=== PATIENT | male | born 1990 | race Caucasian/White ===

== ENCOUNTER 2016-09-02 17:02 | Inpatient (IN) | payer MEDICARE, OTHER ==
[2016-09-02] MEDS ORDERED: ONDANSETRON 4 MG/2 ML VIAL IVPUSH ONE (17:08)
[2016-09-02] MEDS ORDERED: NALOXONE HCL 0.4 MG/ML VIAL IVPUSH PRN ×2 (17:08)
[2016-09-02] MEDS ORDERED: SODIUM CHLORIDE 1,000 ML IV STA ×2 (17:08→18:02)
[2016-09-02] MEDS ORDERED: ONDANSETRON 4 MG/2 ML VIAL ONE (17:08)
--- NOTE | 2016-09-02 17:14 | PDOC ---
History of Present Illness - General History Source: Family Exam Limitations: Other (obtunded and unable to give hx) <MartaAngie - Last Filed: 09/02/16 18:46> <Rafael Rashid - Last Filed: 09/02/16 22:06> - General Stated Complaint: OVERDOSE Past History - Past Medical History Asthma: Yes ( A CHILD) Suicide Attempt (Hx): No - Immunization History Immunization Up to Date: Yes - Psycho/Social/Smoking Cessation Hx Anxiety: No Suicidal Ideation: No Smoking Status: Yes Smoking History: Current every day smoker Have you smoked in the past 12 months: Yes Number of Cigarettes Smoked Daily: 10 'Breaking Loose' booklet given: 06/27/15 Hx Alcohol Use: No Drug/Substance Use Hx: No Substance Use Type: None <MartaAngie Last Filed: 09/02/16 18:46> <Rafael Rashid - Last Filed: 09/02/16 22:06> - Past Medical History Allergies/Adverse Reactions: Allergies Allergy/AdvReac Type Severity Reaction Status Date / Time venom-honey bee Allergy Verified 09/02/16 17:26 [bee venom (honey bee)] Home Medications: Ambulatory Orders NK [No Known Home Medication] 09/02/16 Review of Systems - Review of Systems Able to Perform ROS?: No (obtunded 2/2 OD) <MartaNellyBowen - Last Filed: 09/02/16 18:46> *Physical Exam - Physical Exam Respiratory/Chest: positive: Lungs Clear Cardiovascular: positive: Regular Rate, S1, S2 Gastrointestinal/Abdominal: positive: Soft. negative: Distended, Guarding Integumentary: positive: Dry, Warm Neurologic: positive: Other (obtunded) <MartaAngie - Last Filed: 09/02/16 18:46> - Vital Signs Last Vital Signs Temp Pulse Resp BP Pulse Ox 2 F L 82 17 102/60 98 09/02/16 20:55 09/02/16 20:55 09/02/16 20:55 09/02/16 20:55 09/02/16 20:55 <Rafael Rashid - Last Filed: 09/02/16 22:06> ED Treatment Course - LABORATORY CBC & Chemistry Diagram: 09/02/16 17:15 09/02/16 17:15 <Angie Lozano - Last Filed: 09/02/16 18:46> - LABORATORY CBC & Chemistry Diagram: 09/02/16 17:15 09/02/16 17:15 - ADDITIONAL ORDERS Additional order review: Laboratory Results 09/02/16 09/02/16 09/02/16 20:02 20:02 17:30 Puncture Site Left radial ABG pH 7.34 L ABG pCO2 at Pt Temp 45.6 H ABG pO2 at Pt Temp 133.0 H ABG HCO3 23.8 ABG O2 Sat (Measured) 99.0 H ABG O2 Content 16.2 ABG Base Excess -1.6 Juan Manuel Test Positive Carboxyhemoglobin 4.5 H Methemoglobin 0.6 O2 Delivery Device Nasal Oxygen Flow Rate 3l PEEP 0.0 Sodium Potassium Chloride Carbon Dioxide Anion Gap BUN Creatinine Creat Clearance w eGFR Random Glucose Calcium Total Bilirubin AST ALT Alkaline Phosphatase Creatine Kinase Creatine Kinase Index CK-MB (CK-2) CK-MB (CK-2) Rel Index Troponin I Total Protein Albumin Urine Color Urine Appearance Urine pH Ur Specific [place] Urine Protein Urine Glucose (UA) Urine Ketones Urine Blood Urine Nitrite Urine Bilirubin Urine Urobilinogen Ur Leukocyte Esterase Salicylates Opiates Screen Methadone Screen Acetaminophen < 2.0 L Barbiturate Screen Phencyclidine Screen Ur Amphetamines Screen MDMA (Ecstasy) Screen Benzodiazepines Screen Cocaine Screen U Marijuana (THC) Screen Alcohol, Quantitative 09/02/16 09/02/16 09/02/16 17:30 17:15 17:15 Puncture Site ABG pH ABG pCO2 at Pt Temp ABG pO2 at Pt Temp ABG HCO3 ABG O2 Sat (Measured) ABG O2 Content ABG Base Excess Juan Manuel Test Carboxyhemoglobin Methemoglobin O2 Delivery Device Oxygen Flow Rate PEEP Sodium Potassium Chloride Carbon Dioxide Anion Gap BUN Creatinine Creat Clearance w eGFR Random Glucose Calcium Total Bilirubin AST ALT Alkaline Phosphatase Creatine Kinase Creatine Kinase Index CK-MB (CK-2) CK-MB (CK-2) Rel Index Cancelled Troponin I Total Protein Albumin Urine Color Urine Appearance Urine pH Ur Specific [place] Urine Protein Urine Glucose (UA) Urine Ketones Urine Blood Urine Nitrite Urine Bilirubin Urine Urobilinogen Ur Leukocyte Esterase Salicylates < 4.0 Opiates Screen Methadone Screen Acetaminophen Barbiturate Screen Phencyclidine Screen Ur Amphetamines Screen MDMA (Ecstasy) Screen Benzodiazepines Screen Cocaine Screen U Marijuana (THC) Screen Alcohol, Quantitative 130.1 H* 09/02/16 09/02/16 09/02/16 17:15 17:15 17:15 Puncture Site ABG pH ABG pCO2 at Pt Temp ABG pO2 at Pt Temp ABG HCO3 ABG O2 Sat (Measured) ABG O2 Content ABG Base Excess Juan Manuel Test Carboxyhemoglobin Methemoglobin O2 Delivery Device Oxygen Flow Rate PEEP Sodium 145 Potassium 4.4 Chloride 107 Carbon Dioxide 31 Anion Gap 7 L BUN 8 Creatinine 1.0 D Creat Clearance w eGFR > 60 Random Glucose 90 Calcium 8.6 Total Bilirubin 0.3 D AST 59 H D ALT 86 H D Alkaline Phosphatase 79 D Creatine Kinase 202 Creatine Kinase Index Y CK-MB (CK-2) < 1.000 CK-MB (CK-2) Rel Index Troponin I < 0.02 Total Protein 7.5 Albumin 4.2 Urine Color Straw Urine Appearance Clear Urine pH 6.0 Ur Specific [place] 1.006 Urine Protein Negative Urine Glucose (UA) Negative Urine Ketones Negative Urine Blood Negative Urine Nitrite Negative Urine Bilirubin Negative Urine Urobilinogen Negative Ur Leukocyte Esterase Negative Salicylates Opiates Screen Positive Methadone Screen Negative Acetaminophen Barbiturate Screen Negative Phencyclidine Screen Negative Ur Amphetamines Screen Negative MDMA (Ecstasy) Screen Negative Benzodiazepines Screen Positive Cocaine Screen Negative U Marijuana (THC) Screen Negative Alcohol, Quantitative 09/02/16 17:15 RBC 4.99 MCV 87.3 MCHC 32.8 RDW 13.0 MPV 8.1 Neutrophils % 52.8 Lymphocytes % 35.1 D Monocytes % 9.6 Eosinophils % 1.8 Basophils % 0.7 - Medications Given in the ED: ED Medications Discontinued Medications Generic Name Dose Route Start Last Admin Trade Name Freq PRN Reason Stop Dose Admin Sodium Chloride 1,000 mls @ 1,000 mls/hr 09/02/16 17:08 09/02/16 17:16 Normal Saline - IV 09/02/16 18:07 1,000 mls/hr ASDIR STA Administration Sodium Chloride 1,000 mls @ 1,000 mls/hr 09/02/16 18:02 09/02/16 18:14 Normal Saline - IV 09/02/16 19:01 1,000 mls/hr ASDIR STA Administration Metoclopramide HCl 10 mg 09/02/16 18:02 09/02/16 18:15 Reglan Injection - IVPB 09/02/16 18:03 10 mg ONCE ONE Administration Ondansetron HCl 4 mg 09/02/16 17:08 09/02/16 17:17 Zofran Injection IVPUSH 09/02/16 17:09 4 mg ONCE ONE Administration <Rafael Rashid - Last Filed: 09/02/16 22:06> Medical Decision Making - Medical Decision Making 09/02/16 17:10 26-year-old male, history of opiate abuse (percocet), status post rehabilitation a year ago and was on suboxone up until a week ago when patient self discontinued as is trying to "quit cold turkey" as per family, BIB EMS after father found pt obtunded and unresponsive with empty bottle of "percocet" on night stand. Family also reports that patient has been drinking beer yesterday and today. No known psych hx otherwise and no h/o suicidal attempts See exam Opiod OD Obtunded w/ mild hypoxia and miotic pupils on exam -supplemental oxygen -narcan -IVF -labs/drug screen -anticipate admission 09/02/16 17:38 Pt now awake and more alert after narcan administration. Able to now give hx and admits that he took 3, 80mg oxycontin tabs and also drank alcohol today. Denies SI. Labs and utox pending. Will continue to reassess 09/02/16 18:09 Utox + for opiate and benzos. Pt admits that his father gave him 1/2 tab of clonazepam "to sleep" earlier today. Pt actively vomiting now. Reglan and IVF in progress. Plan is to admit if pt remains ill, otherwise possibly detox/rehab transfer to [facility] if pt consents 09/02/16 18:10 09/02/16 18:11 09/02/16 18:20 09/02/16 18:46 <Angie Lozano - Last Filed: 09/02/16 18:46> *DC/Admit/Observation/Transfer <Angie Lozano - Last Filed: 09/02/16 18:46> - Discharge Dispostion Admit: Yes <Rafael Rashid - Last Filed: 09/02/16 22:06> Diagnosis at time of Disposition: Opiate overdose Qualifiers: Encounter type: initial encounter Injury intent: accidental or unintentional Qualified Code(s): T40.601A - Poisoning by unspecified narcotics, accidental ( unintentional), initial encounter Opioid dependence Qualifiers: Substance use status: with intoxication Complication of substance-induced condition: with unspecified complication Qualified Code(s): F11.229 - Opioid dependence with intoxication, unspecified - Discharge Dispostion Condition at time of disposition: Unchanged/Unknown Progress Note - Progress Note Progress Note: Spoke with Beatriz at poison control center who recommended patient be admitted for observation due to 80mg Oxycontin ER (4 tabs) overdose, respiratory depression, mental status change, may need Narcan Q6hr prn, avoid Romazicon as this may cause rebound seizures, Q-T EKG prolongation. She also requested patient have ABG, with strict vitals Q4hrs. Patient family made aware. Dr. Jay to admit patient. <Rafael Rashid - Last Filed: 09/02/16 22:06>
[2016-09-02 17:22] VITALS: BMI 19.2
[2016-09-02 17:25] LABS: BASOPHIL 0.7 % (0-2.0); EOSINOPHIL 1.8 % (0-4.5); MCH 28.7 pg (25.7-33.7); MCHC 32.8 g/dl (32.0-35.9); MEAN CELL VOLUME 87.3 fl (80-96); MEAN PLT VOLUME 8.1 fl (7.5-11.1); NEUTROPHILS 52.8 % (42.8-82.8); PLATELET COUNT 327 K/MM3 (134-434); WHITE BLOOD COUNT 8.3 K/mm3 (4.0-10.0)
[2016-09-02 17:29] LABS: URINE APPEARANCE CLEAR; URINE BILIRUBIN NEGATIVE (NEGATIVE); URINE BLOOD NEGATIVE (NEGATIVE); URINE COLOR STRAW; URINE GLUCOSE (UA) NEGATIVE (NEGATIVE); URINE KETONE NEGATIVE (NEGATIVE); URINE LEUK ESTERASE NEGATIVE (NEGATIVE); URINE NITRITE NEGATIVE (NEGATIVE); URINE PROTEIN NEGATIVE (NEGATIVE); URINE UROBILINOGEN NEGATIVE E.U./dl (0.2-1.0)
[2016-09-02 17:35] LABS: URINE MARIJUANA THC NEGATIVE ng/ml (CUTOFF=50)
[2016-09-02 17:46] LABS: ALBUMIN 4.2 g/dl (3.4-5.0); ANION GAP 7 (8-16); BILIRUBIN,TOTAL 0.3 mg/dL (0.2-1.0); CALCIUM 8.6 mg/dL (8.5-10.1); CO2 31 mmol/L (21-32); GLUCOSE,RANDOM 90 mg/dL (74-106); SGOT/AST 59 U/L (15-37); SGPT/ALT 86 U/L (12-78); TOT PROT 7.5 g/dl (6.4-8.2)
[2016-09-02 17:49] LABS: ALK PHOS 79 U/L (45-117); TROPONIN I < 0.02 ng/ml (0.00-0.05)
[2016-09-02] MEDS ORDERED: METOCLOPRAMIDE HCL INJECTION 10 MG/2 ML VIAL IVPB ONE (18:02)
[2016-09-02] MEDS ORDERED: METOCLOPRAMIDE HCL INJECTION 10 MG/2 ML VIAL ONE (18:04)
[2016-09-02 20:06] LABS: ARTERIAL BLOOD GAS BASE EXCESS -1.6 meq/l (-2-2); ARTERIAL BLOOD GAS HCO3 23.8 meq/L (22-26); ARTERIAL BLOOD GAS pH 7.34 (7.35-7.45)
[2016-09-02 20:07] LABS: ALLENS TEST POSITIVE; ART PUNCT SITE LEFT RADIAL; LPM/O2% 3L; PT. ON O2? YES; TYPE OF O2 NASAL
[2016-09-02 20:10] LABS: METHEMOGLOBIN 0.6 % (0.4-1.5)
[2016-09-03 08:16] LABS: BASOPHIL 0.6 % (0-2.0); EOSINOPHIL 2.1 % (0-4.5); MCH 29.3 pg (25.7-33.7); MCHC 33.3 g/dl (32.0-35.9); MEAN PLT VOLUME 7.9 fl (7.5-11.1); NEUTROPHILS 53.5 % (42.8-82.8); PLATELET COUNT 269 K/MM3 (134-434); RDW 13.1 % (11.9-15.9); WHITE BLOOD COUNT 8.9 K/mm3 (4.0-10.0)
--- NOTE | 2016-09-03 08:21 | HP ---
Admitting History and Physical - Admission History of Present Illness: 26-year-old male, history of opiate abuse (percocet), status post rehabilitation a year ago and was on suboxone up until a week ago when patient self discontinued as is trying to "quit cold turkey" as per family, BIB EMS after father found pt obtunded and unresponsive with empty bottle of "percocet" on night stand. Family also reports that patient has been drinking beer yesterday and today. No known psych hx otherwise and no h/o suicidal attempts THIS AM PT AWAKE BUT STILL GROGGY HE CANNOT GIVE MUCH DETAIL - Past Medical History Cardiovascular: No: CAD, CHF, HTN, Hyperlipdemia Pulmonary: Yes: Asthma ( A CHILD) Gastrointestinal: No: Ascites Musculoskeletal: No: Chronic low back pain Dermatology: Yes: Other (shingles left eye age 11) Additional Past Medical History: OXYCODONE AND ALCOHOL - Smoking History Smoking history: Current every day smoker Have you smoked in the past 12 months: Yes Aproximately how many cigarettes per day: 10 - Alcohol/Substance Use Hx Alcohol Use: Yes History of Substance Use: reports: Prescription - Social History ADL: Independent 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 History of Recent Travel: No Home Medications - Allergies Allergies/Adverse Reactions: Allergies Allergy/AdvReac Type Severity Reaction Status Date / Time venom-honey bee Allergy Verified 09/02/16 17:26 [bee venom (honey bee)] - Home Medications Home Medications: Ambulatory Orders NK [No Known Home Medication] 09/02/16 Review of Systems - Review of Systems Constitutional: reports: Lethargy Respiratory: reports: No Symptoms Gastrointestinal: reports: No Symptoms Genitourinary: reports: No Symptoms Neurological: reports: Change in LOC, Weakness Physical Examination Vital Signs: Vital Signs Temperature 97.5 F L 09/02/16 23:30 Pulse Rate 87 09/03/16 05:56 Respiratory Rate 20 09/03/16 05:56 Blood Pressure 109/67 09/03/16 05:56 O2 Sat by Pulse Oximetry (%) 100 09/02/16 23:30 Cardiovascular: Yes: Tachycardia, S1, S2 Respiratory: Yes: Regular, CTA Bilaterally Gastrointestinal: Yes: Normal Bowel Sounds, Soft Edema: No Neurological: Yes: Alert, Oriented, Lethargy, Weakness. No: Facial Droop Labs: CBC, BMP 09/03/16 07:50 Problem List - Problems (1) Opiate overdose Assessment/Plan: MONITOR ON TEL DETOX CONSULT Code(s): T40.601A - POISONING BY UNSP NARCOTICS, ACCIDENTAL, INIT Qualifiers: Encounter type: initial encounter Injury intent: accidental or unintentional Qualified Code(s): T40.601A - Poisoning by unspecified narcotics, accidental (unintentional), initial encounter (2) Change in mental status Assessment/Plan: DUE TO ABOVE OBSERVE NEURO Code(s): R41.82 - ALTERED MENTAL STATUS, UNSPECIFIED
[2016-09-03 08:51] LABS: ALBUMIN 3.8 g/dl (3.4-5.0); ALK PHOS 66 U/L (45-117); ANION GAP 6 (8-16); BILIRUBIN,TOTAL 0.5 mg/dL (0.2-1.0); CALCIUM 8.7 mg/dL (8.5-10.1); CO2 34 mmol/L (21-32); CREATININE 0.9 mg/dL (0.7-1.3); GLUCOSE,RANDOM 85 mg/dL (74-106); SGOT/AST 26 U/L (15-37); SGPT/ALT 61 U/L (12-78); TOT PROT 6.2 g/dl (6.4-8.2); TROPONIN I < 0.02 ng/ml (0.00-0.05)
--- NOTE | 2016-09-03 12:39 | EKG ---
Test Reason : Blood Pressure : / mmHG Vent. Rate : 078 BPM Atrial Rate : 078 BPM P-R Int : 140 ms QRS Dur : 082 ms QT Int : 346 ms P-R-T Axes : 070 083 057 degrees QTc Int : 394 ms SINUS RHYTHM WITH MARKED SINUS ARRHYTHMIA OTHERWISE NORMAL ECG WHEN COMPARED WITH ECG OF 21 JUN 2001 NO SIGNIFICANT CHANGE WAS FOUND Confirmed by KENNY CAMARA MD ([id number]) on 09/03/2016 12:38:38 PM Referred By: Confirmed By:KENNY CAMARA MD
[2016-09-03] MEDS ORDERED: chlordiazePOXIDE HCL 25 MG CAPSULE PO ONE (13:44)
[2016-09-03] MEDS ORDERED: chlordiazePOXIDE HCL 25 MG CAPSULE PO PRN (13:44)
--- NOTE | 2016-09-03 13:49 | CONSULT ---
Consult Detox [facility] Reason for Current Admission/Consult: Alcohol dependence & opioid overdose Referred by:: Fred Jay MD - History History of Present Illness: Pt. had eloped then came back while I was in his room to see him.Nurse told pt. that he had to go back down to ED for evaluation before he could be re- admitted. Pt. says he wants to be discharged.Unable to complete consultation. - History Source History Provided By: Patient - Alcohol/Substance Use Hx Alcohol Use: Yes - Past Medical History Cardio/Vascular: No: CAD, CHF, HTN, Hyperlipdemia Pulmonary: Yes: Asthma ( A CHILD) Gastrointestinal: No: Ascites Musculoskeletal: No: Chronic low back pain Dermatology: Yes: Other (shingles left eye age 11) Additional Medical History: PT. ADMITS TO MARIHUANA USE FROM 14 Y/O TO 16 Y/O. HE ALSO EXPERIMENTED WITH MDMA FROM [age] Y/O TO [age] Y/O. - Significant Medical Findings: Laboratory Tests 09/02/16 09/02/16 09/02/16 17:15 17:15 17:15 WBC 8.3 RBC 4.99 Hgb 14.3 Hct 43.6 MCV 87.3 MCHC 32.8 RDW 13.0 Plt Count 327 MPV 8.1 Neutrophils % 52.8 Lymphocytes % 35.1 D Monocytes % 9.6 Eosinophils % 1.8 Basophils % 0.7 Puncture Site ABG pH ABG pCO2 at Pt Temp ABG pO2 at Pt Temp ABG HCO3 ABG O2 Sat (Measured) ABG O2 Content ABG Base Excess Juan Manuel Test Carboxyhemoglobin Methemoglobin O2 Delivery Device Oxygen Flow Rate PEEP Sodium 145 Potassium 4.4 Chloride 107 Carbon Dioxide 31 Anion Gap 7 L BUN 8 Creatinine 1.0 D Creat Clearance w eGFR > 60 Random Glucose 90 Calcium 8.6 Total Bilirubin 0.3 D AST 59 H D ALT 86 H D Alkaline Phosphatase 79 D Creatine Kinase 202 Creatine Kinase Index Y CK-MB (CK-2) < 1.000 CK-MB (CK-2) Rel Index Troponin I < 0.02 Total Protein 7.5 Albumin 4.2 Urine Color Straw Urine Appearance Clear Urine pH 6.0 Ur Specific [place] 1.006 Urine Protein Negative Urine Glucose (UA) Negative Urine Ketones Negative Urine Blood Negative Urine Nitrite Negative Urine Bilirubin Negative Urine Urobilinogen Negative Ur Leukocyte Esterase Negative Salicylates Opiates Screen Methadone Screen Acetaminophen Barbiturate Screen Phencyclidine Screen Ur Amphetamines Screen MDMA (Ecstasy) Screen Benzodiazepines Screen Cocaine Screen U Marijuana (THC) Screen Alcohol, Quantitative 09/02/16 09/02/16 09/02/16 17:15 17:15 17:15 WBC RBC Hgb Hct MCV MCHC RDW Plt Count MPV Neutrophils % Lymphocytes % Monocytes % Eosinophils % Basophils % Puncture Site ABG pH ABG pCO2 at Pt Temp ABG pO2 at Pt Temp ABG HCO3 ABG O2 Sat (Measured) ABG O2 Content ABG Base Excess Juan Manuel Test Carboxyhemoglobin Methemoglobin O2 Delivery Device Oxygen Flow Rate PEEP Sodium Potassium Chloride Carbon Dioxide Anion Gap BUN Creatinine Creat Clearance w eGFR Random Glucose Calcium Total Bilirubin AST ALT Alkaline Phosphatase Creatine Kinase Creatine Kinase Index CK-MB (CK-2) CK-MB (CK-2) Rel Index Cancelled Troponin I Total Protein Albumin Urine Color Urine Appearance Urine pH Ur Specific [place] Urine Protein Urine Glucose (UA) Urine Ketones Urine Blood Urine Nitrite Urine Bilirubin Urine Urobilinogen Ur Leukocyte Esterase Salicylates Opiates Screen Positive Methadone Screen Negative Acetaminophen Barbiturate Screen Negative Phencyclidine Screen Negative Ur Amphetamines Screen Negative MDMA (Ecstasy) Screen Negative Benzodiazepines Screen Positive Cocaine Screen Negative U Marijuana (THC) Screen Negative Alcohol, Quantitative 130.1 H* 09/02/16 09/02/16 09/02/16 17:30 17:30 20:02 WBC RBC Hgb Hct MCV MCHC RDW Plt Count MPV Neutrophils % Lymphocytes % Monocytes % Eosinophils % Basophils % Puncture Site Left radial ABG pH 7.34 L ABG pCO2 at Pt Temp 45.6 H ABG pO2 at Pt Temp 133.0 H ABG HCO3 23.8 ABG O2 Sat (Measured) 99.0 H ABG O2 Content 16.2 ABG Base Excess -1.6 Juan Manuel Test Positive Carboxyhemoglobin Methemoglobin O2 Delivery Device Nasal Oxygen Flow Rate 3l PEEP 0.0 Sodium Potassium Chloride Carbon Dioxide Anion Gap BUN Creatinine Creat Clearance w eGFR Random Glucose Calcium Total Bilirubin AST ALT Alkaline Phosphatase Creatine Kinase Creatine Kinase Index CK-MB (CK-2) CK-MB (CK-2) Rel Index Troponin I Total Protein Albumin Urine Color Urine Appearance Urine pH Ur Specific [place] Urine Protein Urine Glucose (UA) Urine Ketones Urine Blood Urine Nitrite Urine Bilirubin Urine Urobilinogen Ur Leukocyte Esterase Salicylates < 4.0 Opiates Screen Methadone Screen Acetaminophen < 2.0 L Barbiturate Screen Phencyclidine Screen Ur Amphetamines Screen MDMA (Ecstasy) Screen Benzodiazepines Screen Cocaine Screen U Marijuana (THC) Screen Alcohol, Quantitative 09/02/16 09/03/16 09/03/16 20:02 07:50 07:50 WBC 8.9 RBC 4.31 Hgb 12.6 D Hct 37.9 MCV 88.0 MCHC 33.3 RDW 13.1 Plt Count 269 MPV 7.9 Neutrophils % 53.5 Lymphocytes % 34.5 Monocytes % 9.3 Eosinophils % 2.1 Basophils % 0.6 Puncture Site ABG pH ABG pCO2 at Pt Temp ABG pO2 at Pt Temp ABG HCO3 ABG O2 Sat (Measured) ABG O2 Content ABG Base Excess Juan Manuel Test Carboxyhemoglobin 4.5 H Methemoglobin 0.6 O2 Delivery Device Oxygen Flow Rate PEEP Sodium 142 Potassium 3.9 Chloride 102 Carbon Dioxide 34 H Anion Gap 6 L BUN 9 Creatinine 0.9 Creat Clearance w eGFR > 60 Random Glucose 85 Calcium 8.7 Total Bilirubin 0.5 D AST 26 D ALT 61 D Alkaline Phosphatase 66 Creatine Kinase 145 Creatine Kinase Index CK-MB (CK-2) CK-MB (CK-2) Rel Index Troponin I < 0.02 Total Protein 6.2 L Albumin 3.8 Urine Color Urine Appearance Urine pH Ur Specific [place] Urine Protein Urine Glucose (UA) Urine Ketones Urine Blood Urine Nitrite Urine Bilirubin Urine Urobilinogen Ur Leukocyte Esterase Salicylates Opiates Screen Methadone Screen Acetaminophen Barbiturate Screen Phencyclidine Screen Ur Amphetamines Screen MDMA (Ecstasy) Screen Benzodiazepines Screen Cocaine Screen U Marijuana (THC) Screen Alcohol, Quantitative labs noted Assessment Plan - Diagnosis (1) Opiate overdose Status: Acute Qualifiers: Encounter type: initial encounter Injury intent: accidental or unintentional Qualified Code(s): T40.601A - Poisoning by unspecified narcotics, accidental (unintentional), initial encounter - Plan Plan: To be F/U by primary care
[2016-09-03 14:27] VITALS: BP 112/66; PULSE 86; TEMP 98.8
[2016-09-03] MEDS ORDERED: chlordiazePOXIDE HCL 25 MG CAPSULE PO SCH (17:00)
[2016-09-04] MEDS ORDERED: chlordiazePOXIDE HCL 25 MG CAPSULE PO SCH (17:00)
[2016-09-05] MEDS ORDERED: chlordiazePOXIDE 5 MG CAPSULE PO SCH (17:00)
== END 2016-09-03 16:08 | disposition left against medical advice (07) | DRG 816 ==
LOC: JER 17:02 → JERBED 22:06 → OBSVTOIN 23:31 → J4W 09-03 01:29
PROVIDERS: ADMIT Family Medicine; ATTEND Family Medicine
DX: T40.0X1A Poisoning by opium, accidental (unintentional), initial encounter (principal); T40.601A Poisoning by unspecified narcotics, accidental (unintentional), initial encounter; R41.82 Altered mental status, unspecified; Y92.098 Other place in other non-institutional residence as the place of occurrence of the external cause; F17.210 Nicotine dependence, cigarettes, uncomplicated; J45.909 Unspecified asthma, uncomplicated; F10.20 Alcohol dependence, uncomplicated
CPT/HCPCS: 36415; 36600; 80053; 80307; 81003; 82375; 82550; 82553; 82803; 83050; 84484; 85025; 93005; 93010; 99285-25; G0378

== ENCOUNTER 2022-09-14 09:57 | Emergency (ER) | payer OTHER ==
[2022-09-14 10:03] VITALS: RESP 18; TEMP 99; BMI 19.2
[2022-09-14] MEDS ORDERED: IBUPROFEN 600 MG TABLET (FP) PO ONE ×3 (11:23→12:01)
[2022-09-14] MEDS ORDERED: LIDOCAINE HCL/PF 1% SDV 5ML VIAL ONE (12:19)
[2022-09-14 14:13] VITALS: BP 126/70; PULSE 86
== END 2022-09-14 14:18 | disposition home or self-care (01) ==
LOC: JERFT 09:57
PROC: 0RSUXZZ Reposition Right Metacarpophalangeal Joint, External Approach (ICD-10-PCS; principal; 2022-09-14)
DX: S63.104A Unspecified dislocation of right thumb, initial encounter (principal); W01.0XXA Fall on same level from slipping, tripping and stumbling without subsequent striking against object, initial encounter
CPT/HCPCS: 73130-TC-RT-FY; 76942; 99284-25